=== PATIENT | female | born 1945 ===

== ENCOUNTER 2023-06-27 13:39 | Outpatient (CLI) | payer OTHER ==
[~2023-06-27 13:39] MED LIST: SYNTHROID100 MCG; XANAX1 MG
== END 2023-06-27 14:48 | disposition home or self-care (01) ==
LOC: RAD 13:39
PROVIDERS: ATTEND Physical Medicine & Rehabilitation
DX: M54.2 Cervicalgia (principal); M25.511 Pain in right shoulder

== ENCOUNTER 2023-09-07 12:07 | Outpatient (CLI) | payer OTHER | END 2023-09-07 12:15 | disposition home or self-care (01) | LOC: RAD 12:07 | PROVIDERS: ATTEND Physical Medicine & Rehabilitation | DX: S96.911A Strain of unspecified muscle and tendon at ankle and foot level, right foot, initial encounter (principal); W19.XXXA Unspecified fall, initial encounter; Z88.1 Allergy status to other antibiotic agents ==

== ENCOUNTER 2023-10-19 09:45 | Outpatient (CLI) | payer OTHER | END 2023-10-19 09:52 | disposition home or self-care (01) | LOC: RAD 09:45 | PROVIDERS: ATTEND Orthopaedic Surgery | DX: S82.64XA Nondisplaced fracture of lateral malleolus of right fibula, initial encounter for closed fracture (principal) ==

== ENCOUNTER 2025-04-23 13:44 | Outpatient (CLI) | payer OTHER | END 2025-04-23 13:49 | disposition home or self-care (01) | LOC: RAD 13:44 | PROVIDERS: ATTEND General Practice | DX: M25.551 Pain in right hip (principal); M25.561 Pain in right knee; E06.3 Autoimmune thyroiditis; E03.8 Other specified hypothyroidism; E78.2 Mixed hyperlipidemia; E55.9 Vitamin D deficiency, unspecified; E56.8 Deficiency of other vitamins; R73.01 Impaired fasting glucose; E04.2 Nontoxic multinodular goiter; M81.0 Age-related osteoporosis without current pathological fracture ==